=== PATIENT | male | born 1985 | race Caucasian/White ===

== ENCOUNTER 2017-11-19 15:45 | Emergency (ER) | payer OTHER ==
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
[2017-11-19] MEDS ORDERED: ONDANSETRON INJ 4 MG/2 ML VIAL ONE (16:17)
[2017-11-19] MEDS ORDERED: ONDANSETRON ODT 8 MG TAB ONE (16:18)
[2017-11-19] MEDS: ONDANSETRON ODT 8 MG TAB SL ONE (16:20)
[2017-11-19] MEDS ORDERED: WATER FOR INJ 10 ML VIAL INJ ONE (16:34)
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
[2017-11-19] MEDS: TETANUS,DIPHTHERIA,PERTUSSIS 1 EA SYG IM ONE (17:00)
[2017-11-19] MEDS: SODIUM CHLORIDE 0.9% 1000ML 1,000 ML IVS ONE (17:08)
[2017-11-19] MEDS: ceFAZolin SODIUM 1 GM in SODIUM CHL 0.9% 50ML MIN-BAG+ 50 ML IVPB ONE (17:08)
[2017-11-19] MEDS: ceFAZolin SODIUM 1 GM VIAL IM ONE (17:11)
[2017-11-19] MEDS ORDERED: SODIUM CHL 0.9% 50ML MIN-BAG+ 50 ML IVPB ONE (17:12)
[2017-11-19] MEDS ORDERED: ceFAZolin SODIUM 1 GM VIAL ONE (17:12)
[2017-11-19] MEDS: HYDROcodone 7.5MG/APAP 325MG 1 EA TAB PO ONE (18:26)
[2017-11-19] MEDS: KETOROLAC TROMETHAMINE INJ 30 MG/ML VIAL IV ONE (18:26)
[2017-11-19 18:33] VITALS: O2SAT 97
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
[2017-11-19 19:39] VITALS: BP 136/68; TEMP 99.8
[2017-11-19] MEDS ORDERED: HYDROCOD/APAP 10/325 (ER DISP) # 3 tablets PO ONE (20:06)
== END 2017-11-19 20:15 | disposition home or self-care (01) ==
LOC: ER 15:45
DX: S00.81XA Abrasion of other part of head, initial encounter (principal); S40.812A Abrasion of left upper arm, initial encounter; S40.811A Abrasion of right upper arm, initial encounter; S30.810A Abrasion of lower back and pelvis, initial encounter; S80.812A Abrasion, left lower leg, initial encounter; S80.811A Abrasion, right lower leg, initial encounter; M25.571 Pain in right ankle and joints of right foot; Z23 Encounter for immunization; V28.4XXA Motorcycle driver injured in noncollision transport accident in traffic accident, initial encounter; Y92.410 Unspecified street and highway as the place of occurrence of the external cause